=== PATIENT | male | born 1965 | race Two or more races ===

== ENCOUNTER 2018-08-26 20:20 | Emergency (ER) | payer MEDICAID ==
[~2018-08-26] VITALS: Ht 165.1 cm; Wt 63.5 kg
[2018-08-26] MEDS ORDERED: Morphine Sulfate 4mg/ml Inj (IV/IM USE ONLY) IVP ONE (20:45)
[2018-08-26] MEDS ORDERED: Hydromorphone 0.5mg/0.5ml inj IVP ONE ×2 (21:00→21:30)
[2018-08-26] MEDS ORDERED: Isovue-300 100ml vial INJ PRN (21:00)
[2018-08-26 21:15] VITALS: BP 138/78
[2018-08-26 21:16] LABS: BASOPHILS % (AUTO) 1.6 % (0.0-2.0); EOSINOPHILS % (AUTO) 1.2 % (0.0-3.0); HEMATOCRIT 48.1 % (42.0-52.0); HEMOGLOBIN 16.6 G/DL (14.2-18.0); LYMPHOCYTES % (AUTO) 14.7 % (20.0-45.0); MEAN CORPUSCULAR VOLUME 86 FL (80-99); MONOCYTES % (AUTO) 6.4 % (1.0-10.0); NEUTROPHILS % (AUTO) 76.1 % (45.0-75.0); PLATELET COUNT 222 K/UL (150-450); RED BLOOD COUNT 5.61 M/UL (4.70-6.10); RED CELL DISTRIBUTION WIDTH 11.3 % (11.6-14.8); WHITE BLOOD COUNT 10.1 K/UL (4.8-10.8)
[2018-08-26 21:27] LABS: ANION GAP 12 mmol/L (5-15); BLOOD UREA NITROGEN 15 mg/dL (7-18); CALCIUM 9.7 MG/DL (8.5-10.1); CARBON DIOXIDE 26 MMOL/L (21-32); CHLORIDE 102 MMOL/L (98-107); CREATININE 0.9 MG/DL (0.55-1.30); POTASSIUM 4.2 MMOL/L (3.5-5.1); SODIUM 140 MMOL/L (136-145)
[2018-08-26] MEDS ORDERED: Ketorolac 30mg Inj IV ONE (21:30)
[2018-08-26 21:35] LABS: ALANINE AMINOTRANSFERASE 34 U/L (12-78); ALBUMIN 4.2 G/DL (3.4-5.0); ALKALINE PHOSPHATASE 69 U/L (46-116); ASPARTATE AMINO TRANSFERASE 19 U/L (15-37); BILIRUBIN,TOTAL 0.5 MG/DL (0.2-1.0)
--- NOTE | 2018-08-26 21:45 | Emergency Room Report ---
History of Present Illness General Chief Complaint: Abdominal Pain Source: Patient Present Illness HPI Patient presents with severe abdominal pain. He states it happened suddenly earlier today. He feels it in his left flank radiating down to his groin. Also he feels it's epigastric. He denies ever having pain like this before. Severe and he felt nauseated with some vomiting. Denies any fevers or chills. There's no dysuria. The patient's moving his bowels without any difficulty. The pain is 10/10 at this time. He has had a hernia on the right. It usually is able to be reduced without difficulty. No URI sy, chest pain, headache, rashes, dysuria, extremity pain. Pain causing anxiety. Allergies: Coded Allergies: No Known Allergies (Unverified , 08/26/18) Patient History Past Medical History: see triage record Social History: Denies: smoking Social History Narrative with friend Reviewed Nursing Documentation: PMH: Agreed; PSxH: Agreed Nursing Documentation-PMH Past Medical History: No Stated History Review of Systems All Other Systems: negative except mentioned in HPI Physical Exam Vital Signs Date Time Temp Pulse Resp B/P (MAP) Pulse Ox O2 Delivery O2 Flow Rate FiO2 08/26/18 20:20 98.2 85 18 119/75 98 Room Air 98.2 Sp02 EP Interpretation: reviewed, normal General Appearance: GCS 15, non-toxic, moderate distress Head: normocephalic Eyes: bilateral eye normal inspection, bilateral eye PERRL ENT: moist mucus membranes Neck: supple Respiratory: lungs clear, normal breath sounds Cardiovascular #1: regular rate, rhythm Cardiovascular #2: 2+ radial (R) Gastrointestinal: no rebound, guarding, tenderness, hernia - bilat, R = large, decreased bowel sounds Genitourinary: no CVA tenderness Musculoskeletal: back normal, gait/station normal, normal range of motion Neurologic: oriented x3, grossly normal Psychiatric: anxious - with pain Skin: normal inspection, warm/dry Medical Decision Making Diagnostic Impression: Primary Impression: Right inguinal hernia Additional Impression: UTI (urinary tract infection) Qualified Codes: N30.00 - Acute cystitis without hematuria ER Course Patient presents with severe abdominal pain. Differential includes perforated peptic ulcer, cholecystitis, renal stone, aortic aneurysm, diverticulitis amongst others. The patient needs to be evaluated with labs and a CT of the abdomen. We will focus on aggressive pain control also. Patient better with dilaudid. WBC slightly high. Min pyuria. CT with incarcerated hernia. Attempt to reduce. Unable. Antibiotics ordered. Admit med. With pain meds hernia reduced. Examined by Dr. Weinstein who agrees that patient stable for outpatient observation and treatment. Laboratory Tests Test 08/26/18 20:53 08/26/18 21:15 White Blood Count 10.1 K/UL (4.8-10.8) Red Blood Count 5.61 M/UL (4.70-6.10) Hemoglobin 16.6 G/DL (14.2-18.0) Hematocrit 48.1 % (42.0-52.0) Mean Corpuscular Volume 86 FL (80-99) Mean Corpuscular Hemoglobin 29.6 PG (27.0-31.0) Mean Corpuscular Hemoglobin Concent 34.5 G/DL (32.0-36.0) Red Cell Distribution Width 11.3 % (11.6-14.8) L Platelet Count 222 K/UL (150-450) Mean Platelet Volume 6.7 FL (6.5-10.1) Neutrophils (%) (Auto) 76.1 % (45.0-75.0) H Lymphocytes (%) (Auto) 14.7 % (20.0-45.0) L Monocytes (%) (Auto) 6.4 % (1.0-10.0) Eosinophils (%) (Auto) 1.2 % (0.0-3.0) Basophils (%) (Auto) 1.6 % (0.0-2.0) Prothrombin Time 10.8 SEC (9.30-11.50) Prothrombin Time INR 1.0 (0.9-1.1) PTT 23 SEC (23-33) Sodium Level 140 MMOL/L (136-145) Potassium Level 4.2 MMOL/L (3.5-5.1) Chloride Level 102 MMOL/L (98-107) Carbon Dioxide Level 26 MMOL/L (21-32) Anion Gap 12 mmol/L (5-15) Blood Urea Nitrogen 15 mg/dL (7-18) Creatinine 0.9 MG/DL (0.55-1.30) Estimate Glomerular Filtration Rate > 60 mL/min (>60) Glucose Level 120 MG/DL (74-106) H Calcium Level 9.7 MG/DL (8.5-10.1) Total Bilirubin 0.5 MG/DL (0.2-1.0) Aspartate Amino Transferase (AST) 19 U/L (15-37) Alanine Aminotransferase (ALT) 34 U/L (12-78) Alkaline Phosphatase 69 U/L (46-116) Troponin I 0.000 ng/mL (0.000-0.056) Total Protein 8.4 G/DL (6.4-8.2) H Albumin 4.2 G/DL (3.4-5.0) Globulin 4.2 g/dL Albumin/Globulin Ratio 1.0 (1.0-2.7) Lipase 135 U/L (73-393) Urine Color Yellow Urine Appearance Clear Urine pH 8 (4.5-8.0) Urine Specific [place] 1.010 (1.005-1.035) Urine Protein 1+ (NEGATIVE) H Urine Glucose (UA) Negative (NEGATIVE) Urine Ketones 3+ (NEGATIVE) H Urine Blood 1+ (NEGATIVE) H Urine Nitrite Negative (NEGATIVE) Urine Bilirubin Negative (NEGATIVE) Urine Urobilinogen Normal MG/DL (0.0-1.0) Urine Leukocyte Esterase 1+ (NEGATIVE) H Urine RBC 2-4 /HPF (0 - 0) H Urine WBC 5-10 /HPF (0 - 0) H Urine Squamous Epithelial Cells None /LPF (NONE/OCC) Urine Bacteria Few /HPF (NONE) CT/MRI/US Diagnostic Results CT/MRI/US Diagnostic Results : Imaging Test Ordered: CT abd pelvic Impression incarcerated inguinal hernia with some bowel obstruction Last Vital Signs Date Time Temp Pulse Resp B/P (MAP) Pulse Ox O2 Delivery O2 Flow Rate FiO2 08/27/18 00:15 97.5 81 18 138/78 98 Room Air 97.5 Status: improved Disposition: HOME, SELF-CARE Condition: Improved Scripts Nitrofurantoin Monohyd/M-Cryst* (MACROBID 100 MG*) 100 Mg Capsule 100 MG ORAL EVERY 12 HOURS, #14 CAP Prov: Sal Mc M.D. 08/27/18 Ibuprofen* (MOTRIN*) 600 Mg Tablet 600 MG ORAL Q6H PRN for For Pain, #16 TAB Prov: Sal Mc M.D. 08/26/18 Referrals: NOT CHOSEN IPA/,REFERRING (PCP) Sal Mc M.D. Aug 26, 2018 21:45
[2018-08-26 22:22] LABS: APPEARANCE,URINE CLEAR; BILIRUBIN, URINE NEGATIVE (NEGATIVE); GLUCOSE, URINE (UA) NEGATIVE (NEGATIVE); KETONES,URINE 3+ (NEGATIVE); LEUKOCYTE ESTERASE ,URINE 1+ (NEGATIVE); NITRITE,URINE NEGATIVE (NEGATIVE); PH,URINE 8 (4.5-8.0); PROTEIN,URINE 1+ (NEGATIVE); UROBILINOGEN,URINE NORMAL MG/DL (0.0-1.0)
[2018-08-26 22:28] LABS: COLOR,URINE YELLOW
--- NOTE | 2018-08-26 22:36 | Diagnostic Imaging Report ---
EXAM: CT Abdomen and Pelvis With Intravenous Contrast CLINICAL HISTORY: ABD PAIN TECHNIQUE: Axial computed tomography images of the abdomen and pelvis with intravenous contrast. CTDI is 12 mGy and DLP is 672 mGy-cm. One or more of the following dose reduction techniques were used: automated exposure control, adjustment of the mA and/or kV according to patient size, use of iterative reconstruction technique. COMPARISON: No relevant prior studies available. FINDINGS: Lung bases: Unremarkable. No mass. No consolidation. ABDOMEN: Liver: Unremarkable. No mass. Gallbladder and bile ducts: Unremarkable. No calcified stones. No ductal dilation. Pancreas: Unremarkable. No mass. No ductal dilation. Spleen: Unremarkable. No splenomegaly. Adrenals: Unremarkable. No mass. Kidneys and ureters: Unremarkable. No solid mass. No hydronephrosis. Stomach and bowel: There is a large right inguinal hernia containing fat and a loop of fluid-filled prominent small bowel which extends into the right scrotum. Findings are most consistent with an incarcerated hernia and closed-loop small bowel obstruction. The neck of the hernia defect is 3.0 cm transversely. Diverticulosis of the colon. No acute diverticulitis. PELVIS: Appendix: No findings to suggest acute appendicitis. Bladder: Unremarkable. No mass. Reproductive: Unremarkable as visualized. ABDOMEN and PELVIS: Intraperitoneal space: No free air. No evidence of gangrene. No significant fluid collection. Bones/joints: Degenerative changes of the spine. No acute fracture. No dislocation. Soft tissues: See above. Vasculature: Unremarkable. No abdominal aortic aneurysm. Lymph nodes: Unremarkable. No enlarged lymph nodes. IMPRESSION: Large right inguinal hernia containing fat and fluid filled prominent loops of small bowel most consistent with an incarcerated hernia and closed-loop small bowel obstruction. [employer] 08/26/18 22:48 Verify Receipt Verified receipt with Dr. Rome on 08/26 22:48 (-07:00) 08/26/18 22:48 Call From [facility] Dr. Mc
[2018-08-26] MEDS ORDERED: Cefepime HCl 1 GM in D5W 55 ML IVPB ONE (23:00)
[2018-08-26 23:10] VITALS: BP 130/70
[2018-08-26] MEDS ORDERED: IBUPROFEN600 MG ORAL (23:58)
[2018-08-27] MEDS ORDERED: NITROFURANTOIN100 M2 ORAL (00:01)
[2018-08-27 00:15] VITALS: BP 138/78
--- NOTE | 2018-08-27 00:31 | Consultation ---
History of Present Illness General Date patient seen: Aug 27, 2018 Chief Complaint: Abdominal Pain Reason for Consultation: right inguinal hernia incarcerated Present Illness HPI 53 year old otherwise healthy male presented to ED with complaints of severe abdominal pain. states generalized abdominal pain with radiation to right groin / testicle since earlier today. pain cramping 10/10 constant. Multiple episodes of non bloody emesis and intermittent nausea. +flatus. +BM. Is unsure of how long he has had hernia for but knows about it. First episode of incarceration today. In ED noted to have significant pain and unable to reduce hernia. CT demonstrated large bowel obtaining hernia. Surgery called to evaluate. patient seen, chart reviewed, patient examined, CT reviewed. Allergies: Coded Allergies: No Known Allergies (Unverified , 08/26/18) Medication History Scheduled Nitrofurantoin Monohyd/M-Cryst* (Macrobid 100 Mg*), 100 MG ORAL EVERY 12 HOURS Scheduled PRN Ibuprofen* (Motrin*), 600 MG ORAL Q6H PRN for For Pain Patient History History Provided By: Patient, Medical Record, PMD Healthcare decision maker Resuscitation status Advanced Directive on File Past Medical/Surgical History Past Medical/Surgical History: (1) Incarcerated right inguinal hernia (2) UTI (urinary tract infection) (3) Right inguinal hernia Review of Systems All Other Systems: negative except mentioned in HPI Physical Exam General Appearance: WD/WN, alert Lines, tubes and drains: peripheral HEENT: atraumatic, mucous membranes moist Neck: normal inspection Respiratory/Chest: normal breath sounds, no respiratory distress, no accessory muscle use Cardiovascular/Chest: normal peripheral pulses, normal rate, regular rhythm Abdomen: soft, no organomegaly, no mass, hernia - reduced right inguinal hernia. small umbilical hernia. small reducible left inguinal hernia Extremities: non-tender, normal inspection, no calf tenderness Skin Exam: warm/dry Neurologic: alert, oriented x 3 Last 24 Hour Vital Signs Date Time Temp Pulse Resp B/P (MAP) Pulse Ox O2 Delivery O2 Flow Rate FiO2 08/27/18 00:15 97.5 81 18 138/78 98 Room Air 97.5 08/26/18 23:40 97.5 08/26/18 23:33 97.5 08/26/18 23:33 97.5 08/26/18 23:32 97.5 08/26/18 23:10 81 18 130/70 98 Room Air 08/26/18 22:15 97.5 08/26/18 22:15 97.5 08/26/18 21:15 97.5 85 18 138/78 98 Room Air 97.5 08/26/18 20:59 98.2 08/26/18 20:50 98.2 08/26/18 20:20 98.2 85 18 119/75 98 Room Air 98.2 Intake and Output 08/26/18 08/27/18 19:00 07:00 Intake Total 2050 ml Output Total 200 ml Balance 1850 ml Intake IV Total 2050 ml Output Urine Total 200 ml Laboratory Tests Test 08/26/18 20:53 08/26/18 21:15 White Blood Count 10.1 K/UL (4.8-10.8) Red Blood Count 5.61 M/UL (4.70-6.10) Hemoglobin 16.6 G/DL (14.2-18.0) Hematocrit 48.1 % (42.0-52.0) Mean Corpuscular Volume 86 FL (80-99) Mean Corpuscular Hemoglobin 29.6 PG (27.0-31.0) Mean Corpuscular Hemoglobin Concent 34.5 G/DL (32.0-36.0) Red Cell Distribution Width 11.3 % (11.6-14.8) L Platelet Count 222 K/UL (150-450) Mean Platelet Volume 6.7 FL (6.5-10.1) Neutrophils (%) (Auto) 76.1 % (45.0-75.0) H Lymphocytes (%) (Auto) 14.7 % (20.0-45.0) L Monocytes (%) (Auto) 6.4 % (1.0-10.0) Eosinophils (%) (Auto) 1.2 % (0.0-3.0) Basophils (%) (Auto) 1.6 % (0.0-2.0) Prothrombin Time 10.8 SEC (9.30-11.50) Prothromb Time International Ratio 1.0 (0.9-1.1) Activated Partial Thromboplast Time 23 SEC (23-33) Sodium Level 140 MMOL/L (136-145) Potassium Level 4.2 MMOL/L (3.5-5.1) Chloride Level 102 MMOL/L (98-107) Carbon Dioxide Level 26 MMOL/L (21-32) Anion Gap 12 mmol/L (5-15) Blood Urea Nitrogen 15 mg/dL (7-18) Creatinine 0.9 MG/DL (0.55-1.30) Estimat Glomerular Filtration Rate > 60 mL/min (>60) Glucose Level 120 MG/DL (74-106) H Calcium Level 9.7 MG/DL (8.5-10.1) Total Bilirubin 0.5 MG/DL (0.2-1.0) Aspartate Amino Transf (AST/SGOT) 19 U/L (15-37) Alanine Aminotransferase (ALT/SGPT) 34 U/L (12-78) Alkaline Phosphatase 69 U/L (46-116) Troponin I 0.000 ng/mL (0.000-0.056) Total Protein 8.4 G/DL (6.4-8.2) H Albumin 4.2 G/DL (3.4-5.0) Globulin 4.2 g/dL Albumin/Globulin Ratio 1.0 (1.0-2.7) Lipase 135 U/L (73-393) Urine Color Yellow Urine Appearance Clear Urine pH 8 (4.5-8.0) Urine Specific [place] 1.010 (1.005-1.035) Urine Protein 1+ (NEGATIVE) H Urine Glucose (UA) Negative (NEGATIVE) Urine Ketones 3+ (NEGATIVE) H Urine Blood 1+ (NEGATIVE) H Urine Nitrite Negative (NEGATIVE) Urine Bilirubin Negative (NEGATIVE) Urine Urobilinogen Normal MG/DL (0.0-1.0) Urine Leukocyte Esterase 1+ (NEGATIVE) H Urine RBC 2-4 /HPF (0 - 0) H Urine WBC 5-10 /HPF (0 - 0) H Urine Squamous Epithelial Cells None /LPF (NONE/OCC) Urine Bacteria Few /HPF (NONE) Height (Feet): 5 Height (Inches): 5.00 Weight (Pounds): 140 Medications Current Medications Medications (Trade) Dose Ordered Sig/Wilfredo Route PRN Reason Start Time Stop Time Status Last Admin Dose Admin Iopamidol (Isovue-300 100ml) 100 ml NOW PRN INJ Radiology Procedure 08/26/18 21:00 Sodium Chloride 1,000 ml @ 300 mls/hr [id number] IV 08/26/18 21:30 09/25/18 21:29 08/26/18 22:15 Assessment/Plan Problem List: (1) Incarcerated right inguinal hernia Assessment & Plan: Patient given pain medication and fortunately hernia reduced spontaneously. Exam demonstrated complete reduction of hernia contents. Abd soft non distended. scrotum and groin stable. labs okay. No acute surgical intervention necessary discussed findings and care plan with patient and friend at bedside in detail recommend elective hernia repair as an outpatient soon. advised patient to f/u with PCP right away for referral to surgeon patient expressed understanding and will plan for elective repair okay to d/c home trial oral intake. thank you ICD Codes: K40.30 - Unilateral inguinal hernia, with obstruction, without gangrene, not specified as recurrent SNOMED: [id number] Status: stable Jonathan Weinstein Aug 27, 2018 00:31
== END 2018-08-27 00:15 | disposition home or self-care (01) ==
LOC: EDBD 20:20 → EMR 21:10 → CANBEDREQ 08-27 00:10 → EMR 08-27 00:15
DX: K40.30 Unilateral inguinal hernia, with obstruction, without gangrene, not specified as recurrent (principal); N39.0 Urinary tract infection, site not specified; K42.9 Umbilical hernia without obstruction or gangrene; K57.30 Diverticulosis of large intestine without perforation or abscess without bleeding
CPT/HCPCS: 36415; 74177; 80053; 81003; 83690; 84484; 85025; 85610; 85730; 86850; 86900; 86901; 93005; 96361; 96365; 96375; 96376; 99285; J0692; J1170; J1885; J2270; J2405; Q9967